=== PATIENT | female | born 1975 | race Caucasian/White ===

== ENCOUNTER 2018-06-04 05:40 | Observation (INO) | payer OTHER ==
[2018-06-04] MEDS ORDERED: ONDANSETRON 4 MG INJ (07:00)
[2018-06-04] MEDS ORDERED: CEFAZOLIN 1 GM INJ ×2 (07:00→08:08)
[2018-06-04] MEDS ORDERED: DEXAMETHASONE 4 MG/ML 5 ML INJ (07:00)
[2018-06-04] MEDS ORDERED: SEVOFLURANE 15 MIN (07:00)
[2018-06-04] MEDS ORDERED: ROCURONIUM 50 MG INJ (07:27)
[2018-06-04] MEDS ORDERED: SUCCINYLCHOLINE CHLORIDE 100 MG/5 ML SYG IV (07:27)
[2018-06-04] MEDS ORDERED: FENTAnyl 50 MCG/ML VIAL (07:27)
[2018-06-04] MEDS ORDERED: MIDAZOLAM 1 MG/ML 2 ML INJ (07:27)
[2018-06-04] MEDS ORDERED: PROPOFOL 20 ML (07:27)
[2018-06-04] MEDS ORDERED: LIDOCAINE 2% (SDV) 5 ML INJ (07:27)
[2018-06-04] MEDS ORDERED: METOCLOPRAMIDE 10 MG INJ (07:28)
[2018-06-04] MEDS ORDERED: DIPHENHYDRAMINE 50 MG INJ IV (07:30)
[2018-06-04] MEDS ORDERED: LABETALOL HCL 20MG INJ IV (07:30)
[2018-06-04] MEDS ORDERED: hydrALAzine 20 MG INJ IV (07:30)
[2018-06-04] MEDS ORDERED: HALOPERIDOL 5 MG INJ IV (07:30)
[2018-06-04] MEDS ORDERED: IPRATROPIUM (NEB) 0.5 MG/2.5 ML AMP HHN (07:30)
[2018-06-04] MEDS ORDERED: MIDAZOLAM 1 MG/ML 2 ML INJ IV (07:30)
[2018-06-04] MEDS ORDERED: MEPERIDINE 25 MG INJ IV (07:30)
[2018-06-04] MEDS ORDERED: LEVALBUTEROL (NEB) 1.25 MG/0.5 ML AMP HHN (07:30)
[2018-06-04] MEDS ORDERED: ONDANSETRON 4 MG INJ IV (07:30)
[2018-06-04] MEDS ORDERED: HYDROmorphONE 1 MG/5 ML IV SYRINGE IV ×3 (07:30)
[2018-06-04] MEDS ORDERED: LORAZEPAM 2 MG INJ IV (07:30)
[2018-06-04] MEDS ORDERED: KETOROLAC 30 MG INJ IV (07:30)
[2018-06-04] MEDS ORDERED: FENTAnyl 50 MCG/ML VIAL IV ×2 (07:30)
[2018-06-04] MEDS ORDERED: morphine SULFATE/PF (10 MG/10 ML) INJ (07:50)
[2018-06-04] MEDS ORDERED: EPINEPHrine 1 MG INJ (07:52)
[2018-06-04] MEDS: BUPIVACAINE 0.5%/EPI (SDV) 30 ML INJ (08:47)
[2018-06-04] MEDS: THROMBIN (BOVINE) 5,000 UNIT VIAL TP (08:47)
[2018-06-04] MEDS: POLYMYXIN/BACITRACIN 1L IRRIG (08:47)
[2018-06-04] MEDS ORDERED: BUPIVACAINE 0.5%/EPI (SDV) 30 ML INJ (09:27)
[2018-06-04] MEDS ORDERED: HYDROCODONE/APAP (5/325) TAB PO ×2 (10:30)
[2018-06-04] MEDS: KETOROLAC 30 MG INJ IV ×3 (10:30→22:19)
[2018-06-04] MEDS: LACTATED RINGER'S 1,000 ML IV ×2 (11:30→17:53)
[2018-06-04] MEDS: METOCLOPRAMIDE 10 MG TAB PO ×3 (12:00→23:57)
[2018-06-04] MEDS: ONDANSETRON INJ 6 MG in DEXTROSE 5% 50 ML IVPB (13:47)
[2018-06-04] MEDS: CEFAZOLIN 1 GM/50 ML (PMX) 50 ML IVPB ×2 (15:32→22:13)
[2018-06-04] MEDS: DIPHENHYDRAMINE 50 MG CAP PO (22:19)
[2018-06-04] MEDS: ACETAMINOPHEN 325 MG TAB PO (23:57)
[2018-06-05] MEDS: LACTATED RINGER'S 1,000 ML IV ×3 (02:20→18:20)
[2018-06-05 05:14] LABS: ADD MAN DIFF? NO
[2018-06-05 05:21] LABS: WHITE BLOOD COUNT 17.5 10^3/ul (4.8-10.8)
[2018-06-05 05:21] LABS: BASOPHILS % 0.1 % (0.0-2.0); EOSINOPHILS % 0.1 % (0.0-7.0); HEMATOCRIT 35.6 % (37.0-47.0); HEMOGLOBIN 11.9 g/dl (12.0-16.0); LYMPHOCYTES # 1.7 10^3/ul (0.8-2.9); LYMPHOCYTES % 9.7 % (15.0-51.0); MEAN CORPUSCULAR HEMOGLOBIN 29.4 pg (29.0-33.0); MEAN CORPUSCULAR HGB CONC 33.4 g/dl (32.0-37.0); MEAN CORPUSCULAR VOLUME 87.9 fl (82.0-101.0); MEAN PLATELET VOLUME 9.8 fl (7.4-10.4); MONOCYTE # 1.3 10^3/ul (0.3-0.9); MONOCYTES % 7.1 % (0.0-11.0); NEUTROPHIL # 14.4 10^3/ul (1.6-7.5); NEUTROPHILS % 82.4 % (39.0-77.0); PLATELET COUNT 285 10^3/UL (140-415); RED BLOOD COUNT 4.05 10^6/ul (4.20-5.40); RED CELL DISTRIBUTION WIDTH 11.9 % (11.5-14.5)
[2018-06-05] MEDS: KETOROLAC 30 MG INJ IV ×4 (05:25→21:56)
[2018-06-05] MEDS: CEFAZOLIN 1 GM/50 ML (PMX) 50 ML IVPB ×2 (05:25→14:00)
[2018-06-05] MEDS: METOCLOPRAMIDE 10 MG TAB PO ×4 (05:26→23:30)
[2018-06-05 06:05] LABS: ANION GAP 6 (5-13); BLOOD UREA NITROGEN 10 mg/dl (7-20); CARBON DIOXIDE 26 mmol/L (21-31); CHLORIDE 106 mmol/L (97-110); CREATININE 0.62 mg/dl (0.44-1.00); POTASSIUM 4.2 mmol/L (3.5-5.1); SODIUM 138 mmol/L (135-144)
[2018-06-05] MEDS: ACETAMINOPHEN 325 MG TAB PO (21:50)
[2018-06-05] MEDS: CEPHALEXIN 500 MG CAP PO (23:30)
[2018-06-05] MEDS: ZOLPIDEM 5 MG TAB PO (23:34)
[2018-06-06] MEDS: LACTATED RINGER'S 1,000 ML IV ×2 (02:20→10:20)
[2018-06-06] MEDS: KETOROLAC 30 MG INJ IV ×2 (04:05→10:30)
[2018-06-06 05:30] LABS: ADD MAN DIFF? NO
[2018-06-06] MEDS: ACETAMINOPHEN 325 MG TAB PO ×2 (05:30→11:44)
[2018-06-06] MEDS: CEPHALEXIN 500 MG CAP PO ×2 (05:31→11:35)
[2018-06-06] MEDS: METOCLOPRAMIDE 10 MG TAB PO ×2 (05:31→11:35)
[2018-06-06 05:41] LABS: BASOPHILS % 0.3 % (0.0-2.0); EOSINOPHILS # 0.1 10^3/ul (0.0-0.5); EOSINOPHILS % 0.5 % (0.0-7.0); HEMATOCRIT 36.6 % (37.0-47.0); HEMOGLOBIN 12.1 g/dl (12.0-16.0); LYMPHOCYTES # 2.3 10^3/ul (0.8-2.9); MEAN CORPUSCULAR HEMOGLOBIN 29.3 pg (29.0-33.0); MEAN CORPUSCULAR HGB CONC 33.1 g/dl (32.0-37.0); MEAN CORPUSCULAR VOLUME 88.6 fl (82.0-101.0); MONOCYTE # 1.3 10^3/ul (0.3-0.9); MONOCYTES % 8.8 % (0.0-11.0); NEUTROPHIL # 11.3 10^3/ul (1.6-7.5); NEUTROPHILS % 74.8 % (39.0-77.0); PLATELET COUNT 243 10^3/UL (140-415); RED BLOOD COUNT 4.13 10^6/ul (4.20-5.40)
[2018-06-06 05:41] LABS: WHITE BLOOD COUNT 15.1 10^3/ul (4.8-10.8)
[2018-06-06 13:08] LABS: ADD UMIC YES; UR ASCORBIC ACID NEGATIVE (NEGATIVE); UR BACTERIA FEW /HPF (NONE SEEN); UR BILIRUBIN (Dip) NEGATIVE (NEGATIVE); UR BLOOD (Dip) 3+ mg/dL (NEGATIVE); UR CLARITY CLOUDY (CLEAR); UR COLOR YELLOW (YELLOW); UR GLUCOSE (Dip) NEGATIVE (NEGATIVE); UR KETONES (Dip) NEGATIVE (NEGATIVE); UR LEUKOCYTE ESTERASE (Dip) 3+ Leu/ul (NEGATIVE); UR MUCUS FEW /HPF (NONE SEEN); UR NITRITE (Dip) NEGATIVE (NEGATIVE); UR RBC > 182 /HPF (0-5); UR SPECIFIC GRAVITY (Dip) 1.014 (1.003-1.030); UR SQUAMOUS EPITHELIAL CELL FEW /HPF (FEW); UR TOTAL PROTEIN (Dip) 1+ mg/dl (NEGATIVE); UR UROBILINOGEN (Dip) NEGATIVE (NEGATIVE); UR WBC 111 /HPF (0-5)
== END 2018-06-06 12:08 | disposition home or self-care (01) ==
LOC: REC 05:40 → MS1 11:40
DX: N81.3 Complete uterovaginal prolapse (principal); N39.46 Mixed incontinence; K59.00 Constipation, unspecified; N88.8 Other specified noninflammatory disorders of cervix uteri; Z97.5 Presence of (intrauterine) contraceptive device; Z88.0 Allergy status to penicillin; Z82.49 Family history of ischemic heart disease and other diseases of the circulatory system
CPT/HCPCS: 57260; 80051; 81001; 82565; 84520; 85025; 87086; 88304; 99217